=== PATIENT | female | born 1935 | race Two or more races ===

== ENCOUNTER 2018-08-30 13:41 | Emergency (ER) | payer MEDICAID, OTHER ==
[~2018-08-30] VITALS: Ht 147.3 cm; Wt 73.9 kg
[2018-08-30 15:32] LABS: Albumin 3.7 g/dL (3.4-5.0); BUN/Creatinine Ratio 19.7; Calcium 9.3 mg/dL (8.5-10.1); Potassium 3.6 mmol/L (3.5-5.1)
[2018-08-30 15:33] LABS: Basophils # (auto) 0 uL; Basophils % (auto) 0.6 % (0.0-2.0); Eosinophils # (auto) 0.2 uL; Eosinophils % (auto) 2.7 % (0.0-7.0); Hematocrit 46.2 % (36.0-46.0); Hemoglobin 15.6 g/dL (12.2-16.2); Lymphocytes # (auto) 1.9 uL; Lymphocytes % (auto) 30.6 % (10.0-50.0); Mean Corpuscular Hemoglobin 30.7 pg (28.0-32.0); Mean Corpuscular Hgb Conc. 33.7 g/dL (32.0-36.0); Monocytes # (auto) 0.7 uL; Monocytes % (auto) 11.8 % (0.0-12.0); Neutrophils # (auto) 3.4 uL; Neutrophils % (auto) 54.3 % (37.0-80.0); Nucleated Red Blood Cells % 0.1 %; Platelet Count (auto) 217 10^3/uL (140-450); Red Blood Cells 5.08 10^6/uL (4.0-5.20); Red Cell Distribution Width 14.9 % (11.8-14.3); White Blood Cell 6.2 10^3/uL (4.4-10.8)
[2018-08-30 15:35] LABS: Bilirubin, Total 0.3 mg/dL (0.2-1.0); Total Protein 7.7 g/dL (6.4-8.2)
[2018-08-30 16:13] LABS: Urine Bacteria NONE SEEN /hpf (None Seen); Urine Blood Negative /uL (Negative); Urine Specific Gravity 1.008 (1.001-1.035); Urine WBC <1 /hpf (0 - 5)
[2018-08-30 16:48] VITALS: BP 119/56
== END 2018-08-30 16:50 | disposition home or self-care (01) ==
LOC: ER 13:46
DX: J40 Bronchitis, not specified as acute or chronic (principal); Z90.49 Acquired absence of other specified parts of digestive tract
CPT/HCPCS: 36415; 71046; 80053; 81001; 85025; 93005

== ENCOUNTER 2018-10-04 15:47 | Emergency (ER) | payer MEDICAID ==
[~2018-10-04] VITALS: Ht 144.8 cm; Wt 71.7 kg
[2018-10-04 18:11] LABS: Basophils # (auto) 0.1 uL; Basophils % (auto) 1.2 % (0.0-2.0); Eosinophils # (auto) 0 uL; Eosinophils % (auto) 0.9 % (0.0-7.0); Hematocrit 44.2 % (36.0-46.0); Hemoglobin 14.9 g/dL (12.2-16.2); Lymphocytes # (auto) 1.1 uL; Lymphocytes % (auto) 22.9 % (10.0-50.0); Mean Corpuscular Hemoglobin 30.8 pg (28.0-32.0); Mean Corpuscular Hgb Conc. 33.8 g/dL (32.0-36.0); Monocytes # (auto) 0.6 uL; Monocytes % (auto) 13.3 % (0.0-12.0); Neutrophils # (auto) 2.9 uL; Neutrophils % (auto) 61.7 % (37.0-80.0); Nucleated Red Blood Cells % 0.5 %; Platelet Count (auto) 142 10^3/uL (140-450); Red Blood Cells 4.85 10^6/uL (4.0-5.20); White Blood Cell 4.6 10^3/uL (4.4-10.8)
[2018-10-04 18:15] LABS: Albumin 3.4 g/dL (3.4-5.0); Anion Gap 6 (5-15); Calcium 8.4 mg/dL (8.5-10.1); Carbon Dioxide 30 mmol/L (21-32); Chloride 99 mmol/L (98-107); Glucose 123 mg/dL (74-106); Potassium 3.3 mmol/L (3.5-5.1); Sodium 135 mmol/L (136-145)
[2018-10-04 18:16] LABS: Urine Bacteria NONE SEEN /hpf (None Seen); Urine Blood TRACE /uL (Negative); Urine Specific Gravity 1.008 (1.001-1.035); Urine WBC 1 /hpf (0 - 5)
[2018-10-04 18:20] LABS: Alanine Aminotransferase 21 U/L (13-56); Alkaline Phosphatase 112 U/L (45-117); Aspartate Aminotransferase 23 U/L (15-37); BUN/Creatinine Ratio 21.3; Bilirubin, Total 0.5 mg/dL (0.2-1.0); Blood Urea Nitrogen 13 mg/dL (7-18); GFR African American 120 mL/min; GFR Non-African American 99 mL/min; Total Protein 7.6 g/dL (6.4-8.2)
[2018-10-04 19:39] VITALS: BP 149/47
== END 2018-10-04 19:45 | disposition home or self-care (01) ==
LOC: ER 15:56
DX: J40 Bronchitis, not specified as acute or chronic (principal); I10 Essential (primary) hypertension; R42 Dizziness and giddiness; E78.5 Hyperlipidemia, unspecified; I25.10 Atherosclerotic heart disease of native coronary artery without angina pectoris; Z90.49 Acquired absence of other specified parts of digestive tract
CPT/HCPCS: 36415; 71046; 80053; 81001; 84484; 85025; 93005

== ENCOUNTER 2018-10-06 14:12 | Emergency (ER) | payer MEDICAID ==
[~2018-10-06] VITALS: Ht 149.9 cm; Wt 68.0 kg
[2018-10-06 14:28] VITALS: BP 147/53
== END 2018-10-06 16:30 | disposition home or self-care (01) ==
LOC: ER 14:12
DX: L03.211 Cellulitis of face (principal); I25.10 Atherosclerotic heart disease of native coronary artery without angina pectoris; E78.5 Hyperlipidemia, unspecified; I10 Essential (primary) hypertension; Z90.49 Acquired absence of other specified parts of digestive tract; Z90.710 Acquired absence of both cervix and uterus
CPT/HCPCS: 70140